=== PATIENT | male | born 1985 | race Caucasian/White ===

== ENCOUNTER 2018-01-20 10:08 | Inpatient (IN) ==
[2018-01-20] MEDS ORDERED: IOPAMIDOL 100 ML BOTTLE IV ONE (10:09)
--- NOTE | 2018-01-20 10:29 | Emergency Department Note ---
Skin/Abscess/FB HPI - General Chief complaint: Skin/Abscess/Foreign Body Stated complaint: right foot wound infection, previous surgery. Time Seen by Provider: 01/20/18 10:14 Source: patient Mode of arrival: wheelchair Limitations: no limitations - History of Present Illness HPI Narrative: 32-year-old male presents for evaluation of right ankle infection. In September he fell off a roof and broke his ankle. He had surgery and hardware put in. About 10 days ago he had surgery by Dr. Le and had the hardware removed. They believe it is infected. He has been taking oral antibiotics and it is continuing to get worse. He was sent here by Dr. Harrison. Positive chills last few days. Unknown fever. No nausea, vomiting, or diarrhea. He does have decreased energy. Associated symptoms: Reports: chills, malaise - Related Data Previous Rx's Medication Instructions Recorded DAPTOmycin [Cubicin] 700 mg IV Q24 #84 vial 01/08/18 Allergies Allergy/AdvReac Type Severity Reaction Status Date / Time No Known Drug Allergies Allergy Verified 12/31/17 10:10 Review of Systems All systems ED: reviewed and negative except as stated. Past Medical History - Past Medical History [facility] Narrative: Medical History (Last Updated 01/01/18 @ 12:43 by Jasmyne Sabillon) Integumentary disorder (Chronic) Endocrine disorder (Chronic) Fracture of right calcaneus (Chronic) MRSA cellulitis of right foot (Chronic) Cellulitis (Chronic) Nervousness (Chronic) Joint pain (Chronic) High blood pressure (Chronic) Past Surgical History (Last Reviewed 12/31/17 @ 10:21 by Luna Jalloh RN) History of foot fracture (Chronic 10/05/17) Medical history: Reports: hypertension - Social History smoking status: Current every day smoker Alcohol use: Reports: Occasionally Drug use: Reports: none Physical Exam Limitations: no limitations General appearance: alert, in no apparent distress Head: atraumatic, normocephalic, normal inspection Eye: Present: normal appearance. Absent: conjunctival injection ENT: mucous membranes moist Chest: Present: normal inspection, symmetric chest wall rise Respiratory: Present: normal lung sounds bilaterally. Absent: respiratory distress, wheezes Cardiovascular: Present: regular rate, normal heart sounds Extremities: Present: other (Right ankle with new dressing that was just placed by wound care. He does arrive with pictures in his chart that were taken today. He does have redness, swelling, warmth ankle. Please see picture documentation.) Neurological: Present: alert, oriented X3, normal gait Psychiatric: Present: normal affect, normal mood Skin: Present: warm, dry, normal color, erythema (Right ankle. Please see extremity documentation as well as pictures in chart) Course Course Narrative: At 1215 Dr. barker he is here to see the patient. He really feels the patient would benefit by admission with IV antibiotics. Pain management, hyperbaric therapy. The patient has been on outpatient IV therapy and has failed worsening symptoms rather than improvement. At 1315 I did speak with the hospitalist, Dr. Disla who would like us to contact Dr. Le since he recently did surgery as well as infectious disease for recommendations on antibiotic therapy. Vital Signs Temperature 97.6 F 01/20/18 10:09 Pulse Rate 86 01/20/18 10:09 Respiratory Rate 18 01/20/18 10:09 Blood Pressure 134/87 01/20/18 10:09 Pulse Oximetry (%) 100 01/20/18 10:09 Temperature 97.6 F 01/20/18 10:09 Pulse Rate 73 01/20/18 13:31 Respiratory Rate 20 01/20/18 12:15 Blood Pressure 111/69 01/20/18 13:00 Pulse Oximetry (%) 98 01/20/18 13:31 Skin/Abscess/Foreign Body - Lab Data Lab results reviewed: Yes I reviewed the patient's lab results. Result diagrams: 01/20/18 10:32 01/20/18 10:32 Lab Results 01/20/18 01/20/18 01/20/18 Range/Units 10:32 10:32 10:32 WBC 10.3 (4.5-11.0) K/mcL RBC 4.38 L (4.50-5.90) M/mcL Hgb 12.1 L (13.5-16.5) g/dL Hct 35.8 L (41.0-55.0) % POC Hct 36.0 L (41.0-55.0) % MCV 81.8 (80.0-100.0) fL MCH 27.6 (26.0-34.0) pg MCHC 33.8 (31.0-36.0) g/dL RDW 15.4 H (11.5-14.5) % Plt Count 313 (140-440) K/mcL MPV 8.0 (7.4-10.4) fL Gran % 50.6 (38.0-78.0) % Lymph % (Auto) 38.0 (15.5-49.0) % [place] % (Auto) 7.5 (1.0-12.0) % Eos % (Auto) 3.6 (0.0-7.0) % Baso % (Auto) 0.3 (0.0-2.0) % Gran # 5.2 (1.8-8.0) K/mcL Lymph # (Auto) 3.9 (1.5-4.8) K/mcL [place] # (Auto) 0.8 (0.1-0.9) K/mcL Eos # (Auto) 0.4 (0.0-0.7) K/mcL Baso # (Auto) 0 (0.0-0.3) K/mcL VBG Lactic Acid 0.7 (0.5-2.2) mmol/L POC Sodium 138 (133-145) mmol/L Sodium 138 (133-145) mmol/L POC Potassium 3.9 (3.3-5.1) mmol/L Potassium 4.0 (3.3-5.1) mmol/L POC Chloride 102 (96-108) mmol/L Chloride 103 (96-108) mmol/L Carbon Dioxide 26 (22-30) mmol/L POC Total CO2 25 (22-30) mmol/L Anion Gap 9.0 (8-16) POC BUN 9 (6-20) mg/dl BUN 10 (6-20) mg/dl Creatinine 0.7 (0.7-1.2) mg/dl POC Creatinine 0.6 L (0.7-1.2) mg/dl GFR Calculation 126 Glucose 94 (70-105) mg/dL POC Glucose 93 (70-105) mg/dL Calcium 9.7 (8.6-10.4) mg/dl POC WB Ioniz Calcium 1.20 (1.16-1.32) mmol/L Total Bilirubin 0.4 (0.0-1.0) mg/dL AST 31 (0-37) U/l ALT 67 H (0-40) U/l Alkaline Phosphatase 93 (39-117) U/L Total Protein 7.7 (5.9-8.4) gm/dL Albumin 3.8 (3.2-5.2) gm/dL Globulin 3.9 H (2.2-3.7) gm/dL Albumin/Globulin Ratio 1.0 (1.0-2.3) - Radiology Data Radiology results reviewed: Yes I reviewed the patient's radiology results. Disposition Pt seen by DISTRICT SERVICE MANAGER/PA only: Yes Clinical Impression: Post op infection, Cellulitis, Wound dehiscence, Pain, Anxiety Disposition: Xfer As Inpt ([facility]) Condition: Fair Referrals: Jose Wright MD [Physician] - Alexei Romero MD [Primary Care Provider] - Stanley Le MD [Physician] -
[2018-01-20] MEDS ORDERED: oxyCODONE/APAP 10/325MG TABLET PO ONE ×2 (10:53→11:08)
[2018-01-20 11:04] LABS: Basophils # (Auto) 0 K/mcL (0.0-0.3); Basophils % (Auto) 0.3 % (0.0-2.0); Eosinophils # (Auto) 0.4 K/mcL (0.0-0.7); Eosinophils % (Auto) 3.6 % (0.0-7.0); Granulocytes % (Auto) 50.6 % (38.0-78.0); Lymphocytes # (Auto) 3.9 K/mcL (1.5-4.8); Mean Cell Volume 81.8 fL (80.0-100.0); Mean Corpuscular HGB Conc 33.8 g/dL (31.0-36.0); Mean Corpuscular Hemoglobin 27.6 pg (26.0-34.0); Monocytes # (Auto) 0.8 K/mcL (0.1-0.9); Monocytes % (Auto) 7.5 % (1.0-12.0); Platelet Count 313 K/mcL (140-440); RBC 4.38 M/mcL (4.50-5.90); Red Cell Distribution Width 15.4 % (11.5-14.5)
[2018-01-20 11:24] LABS: ALT/SGPT 67 U/l (0-40); Albumin 3.8 gm/dL (3.2-5.2); Alkaline Phosphatase 93 U/L (39-117); Blood Urea Nitrogen 10 mg/dl (6-20)
--- NOTE | 2018-01-20 11:59 | Cat Scan Report ---
CLINICAL INFORMATION: History of distal fibular and calcaneal fracture. Previous open reduction and internal fixation TECHNIQUE: Axial images through the right ankle. Sagittally and coronally reformatted images. COMPARISON: Previous plain film examination of the right ankle dated 12/29/2017. Previous CT scan of the right foot dated 01/01/2018. FINDINGS: There is a dynamic compression plate on the distal right fibula. No evidence for osteomyelitis. No abnormality. Distal tibia is negative. Patient has a history of calcaneal fracture. Dynamic gadolinium fixation plate on the lateral aspects of the calcaneus has been removed. No acute fracture identified. There is a soft tissue wound in the lateral aspects of the right heel. This wound tracks deep to the calcaneus. There is no definite acute calcaneal bone destruction identified. No other interval change. Although acute bone destruction is not noted MRI scan may be helpful to exclude osteomyelitis. Appearance is consistent with osteopenia or osteoporosis, probably secondary to disuse. No soft tissue gas bubbles. IMPRESSION: 1. Status post removal of calcaneal fixation plate. 2. There is a soft tissue wound without gas bubbles. This wound tracks from the skin surface to the lateral aspects of the calcaneus 3. No definite acute bone destruction. Osteomyelitis is not excluded. MRI scan may be useful for further evaluation. Interpreted and Authenticated by: John Mendez 01/20/18
[2018-01-20] MEDS ORDERED: LORazepam 2 MG/ML VIAL IV ONE (12:06)
[2018-01-20] MEDS ORDERED: HYDROmorphone 2 MG/ML VIAL IV SCH (12:15)
[2018-01-20] MEDS ORDERED: HYDROmorphone 2 MG/ML VIAL IV ONE (12:27)
[2018-01-20] MEDS ORDERED: ALPRAZolam 0.5 MG TABLET PO ONE (14:01)
--- NOTE | 2018-01-20 15:25 | Internal Med History&Physical ---
<Evan Disla - Last Filed: 01/20/18 15:37> Medical - H&P: HPI Patient information: Note initiated : 01/20/18 at 3:37 pm Service Date, if different from initiated Date: [] Patient: Hipolito Arriaga 32 y/o M admitted on for right foot wound infection, previous surgery.. Chief Complaint: [] History of present illness: Mr. Arriaga is a 32 year old M Medical - H&P: Meds Home Medications Medication Instructions Recorded Confirmed Type DAPTOmycin [Cubicin] 700 mg IV Q24 #84 vial 01/08/18 01/20/18 Rx Claritin PRN 01/20/18 History Allergies Allergy/AdvReac Type Severity Reaction Status Date / Time No Known Drug Allergies Allergy Verified 01/20/18 14:29 Medical - H&P: Exam - Constitutional Vitals: Temp Pulse Resp BP Pulse Ox 97.6 F 71 20 89/54 98 01/20/18 10:09 01/20/18 15:02 01/20/18 12:15 01/20/18 15:02 01/20/18 15:02 Medical - H&P: Reslt - Labs CBC & Chem 7: 01/20/18 10:32 01/20/18 10:32 Labs: Short CBC 01/20/18 Range/Units 10:32 WBC 10.3 (4.5-11.0) K/mcL Hgb 12.1 L (13.5-16.5) g/dL Hct 35.8 L (41.0-55.0) % Plt Count 313 (140-440) K/mcL BMP 01/20/18 10:32 Sodium 138 Potassium 4.0 Chloride 103 Carbon Dioxide 26 BUN 10 Creatinine 0.7 Glucose 94 Calcium 9.7 Liver Function 01/20/18 Range/Units 10:32 Total Bilirubin 0.4 (0.0-1.0) mg/dL AST 31 (0-37) U/l ALT 67 H (0-40) U/l Alkaline Phosphatase 93 (39-117) U/L Albumin 3.8 (3.2-5.2) gm/dL <Zhen Galvez - Last Filed: 01/20/18 15:44> Medical - H&P: HPI Patient information: Note initiated : 01/20/18 at 3:24 pm Service Date, if different from initiated Date: [] Patient: Hipolito Arriaga 32 y/o M admitted on for right foot wound infection, previous surgery.. Chief Complaint: [] History of present illness: Mr. Arriaga is a 32 year old M LIVE [facility] Medical - H&P Patient Name: Hipolito Arriaga Date of : [birth year] Patient Status: Provider Office Visit Attending Provider: Jose Wright Date: 01/20/18 14:00 Initialization Date: 01/20/18 14:00 Medical - H&P: HPI Patient information: Note initiated : 01/20/18 at 2:00 pm Service Date, if different from initiated Date: [] Patient: Hipolito Arriaga 32 y/o M admitted on for 5 day f/u MDRO. Chief Complaint: [Pain and post op surgical infection] Chief complaint: Pain in right foot due to post op surgical infection History of present illness: Mr. Arriaga is a 32 year old M who presented to the ED at the direction of his wound care physician (Dr. Wright) due to apparent failure of outpatient wound treatment for a-post surgical wound and infection in his right foot. The Pt presented to the ED with an inflamed and erythematous wound in the right foot. His last pain rating in the ED was 5/10. Pt was given pain control in ED. The Pt initially injured his foot in September of 2017 when he fell off a roof. Surgery was performed in [place] and plates were placed to stabilize the foot. A few days later the foot became inflamed and the stitches fell out. The Pt was then managed as an outpatient for the next several months with improving and then relapsing infection of the surgical site. Pt then presented to wound care and was taken to surgery By Dr. Mendoza on 01/06/18 for removal of hardware and I& D. Pt was then started on outpatient wound therapy but failed due to continued infection and lack of healing. CT performed in the ED showed status post op changes without gas infiltrate but was unable to rule out osteomyelitis. Lab workup was unremarkable. Pt is a current smoker but wants to quit. Pt said he gets a headache and feels feverish when he receives daptomycin. Pt otherwise denies dizziness, chest pain , dyspnea, cough, fever, chills, nausea, vomiting, diarrhea or stomach pain. Pt will be admitted for wound care from Dr. Wright with consult from ID (Dr. Alfaro) for abx tx and consult from Surgeons Dr. Mendoza and Mimi. Vitals: 111/69 BP 79 HR 16 RR SpO2 97% on RA Review of systems: Positive as stated in HPI. Other 13 systems reviewed with Pt were negative. Medical - H&P: PMH Medical history: 1) Anxiety 2) Seasonal allergy symptoms 3) Genital rash treated with topical fungals Surgical history: Past Surgical History (Last Reviewed 12/31/17 @ 10:21 by Luna Jalloh RN) 1) Removal of hardware with I&D from repair done in September of 2017 2) History of foot fracture and repair with hardware implanted (Chronic 10/05/17 ) 3) Right ankle repair with hardware placed in 2015 Pertinent family history: Family History (Last Reviewed 12/31/17 @ 10:21 by Luna Jalloh RN) Father Prostate Cancer Mother Rheumatoid arthritis Social history: Social History (Last Updated 01/01/18 @ 12:44 by Jasmyne Sabillon) Pt lives with significant other Pt smokes .5 packs/day and wants to quit Denies EtOH and recreational drugs Medical - H&P: Meds Home Medications Medication Instructions Recorded Confirmed Type DAPTOmycin [Cubicin] 700 mg IV Q24 #84 vial 01/08/18 01/20/18 Rx Claritin PRN 01/20/18 History Allergies Allergy/AdvReac Type Severity Reaction Status Date / Time No Known Drug Allergies Allergy Verified 01/20/18 14:29 Medical - H&P: Exam - Constitutional Exam: Pt is resting and appears to be a healthy middle-aged man with normal habitus in no acute distress. - Head Head exam: Present: atraumatic, normocephalic - Eye Eye exam: Present: EOMI, normal appearance, PERRL Pupils: Present: PERRL - ENT ENT exam: Present: mucous membranes moist, normal exam - Respiratory Respiratory exam: Present: normal respiratory exam, CTAB - Cardiovascular Cardiovascular exam: Present: normal rate and rhythm - GI/Abdominal GI/Abdominal exam: Present: normal bowel sounds, soft - Extremities Exam Extremities exam: Present: full ROM, normal capillary refill Additional comments: Right foot was tender to palpation. Wound had just been wrapped by wound care. LE revealed onychomycosis in all 10 toes but was otherwise normal. - Neurological Exam Neurological exam: Present: alert, oriented X3 - Skin Skin exam: Present: dry Medical - H&P: A/P - Narrative A/P Narrative: Assessment 1) Post op surgical wound and infection with possible osteomyelitis 2) Anxiety 3) Tobacco use disorder 4) Right foot pain Plan 1) Continue IV antibiotics in consultation with ID (Dr. Alfaro) 1) Provide wound care in consultation with Mimi Gutiérrez & Kelly 1) MRI to rule out osteomyelitis 2) Treat anxiety as needed. 3) Charlo Pt on smoking cessation and provide nicotine replacement. 4) Provide pain relief 5) DVT prophylaxis Medical - H&P: Exam - Constitutional Vitals: Temp Pulse Resp BP Pulse Ox 97.6 F 71 20 89/54 98 01/20/18 10:09 01/20/18 15:02 01/20/18 12:15 01/20/18 15:02 01/20/18 15:02 Medical - H&P: Reslt - Labs CBC & Chem 7: 01/20/18 10:32 01/20/18 10:32 Labs: Short CBC 01/20/18 Range/Units 10:32 WBC 10.3 (4.5-11.0) K/mcL Hgb 12.1 L (13.5-16.5) g/dL Hct 35.8 L (41.0-55.0) % Plt Count 313 (140-440) K/mcL BMP 01/20/18 10:32 Sodium 138 Potassium 4.0 Chloride 103 Carbon Dioxide 26 BUN 10 Creatinine 0.7 Glucose 94 Calcium 9.7 Liver Function 01/20/18 Range/Units 10:32 Total Bilirubin 0.4 (0.0-1.0) mg/dL AST 31 (0-37) U/l ALT 67 H (0-40) U/l Alkaline Phosphatase 93 (39-117) U/L Albumin 3.8 (3.2-5.2) gm/dL
[2018-01-20] MEDS ORDERED: ACETAMINOPHEN 325 MG TABLET PO PRN (15:56)
[2018-01-20] MEDS ORDERED: ONDANSETRON 4 MG/2 ML VIAL IV PRN (15:56)
[2018-01-20] MEDS ORDERED: 0.9 % SODIUM CHLORIDE 10 ML SYRINGE IV PRN (16:49)
[2018-01-20] MEDS: 0.9 % SODIUM CHLORIDE 10 ML SYRINGE IV SCH ×2 (17:18→21:38)
[2018-01-20] MEDS: DAPTOmycin 500 MG VIAL IV SCH (17:18)
[2018-01-20] MEDS: HYDROcodone/APAP 5/325MG TABLET PO PRN ×3 (17:44→23:43)
--- NOTE | 2018-01-20 19:38 | Magnetic Resonance Report ---
CLINICAL INFORMATION: Previous calcaneal fracture. Soft tissue infection and removal of orthopedic hardware. There is a draining wound over the lateral aspects of the calcaneus. TECHNIQUE: Sagittal, axial, coronal images of the right foot. COMPARISON: Previous CT scan dated 01/20/2018. Prior examination dated 01/01/2018. FINDINGS: There is a calcaneal fracture. Patient underwent open reduction and internal fixation of calcaneal fracture with placement of a fixation plate. This hardware from the calcaneus has been removed. There is a wound which extends from the skin surface overlying the lateral aspects of the calcaneus deep to the calcaneal surface. No soft tissue gas bubbles demonstrated on CT scan. The calcaneus is diffusely abnormal with extensive bone marrow edema throughout much of the bone. Appearance is consistent with osteomyelitis. There is some sparing of the calcaneal tuberosity. The rest of the calcaneus appears abnormal. There is bone marrow edema within the posterior and inferior aspects of the talus. This is also suspicious for osteomyelitis. The talar dome is negative. The anterior talus to the talonavicular joint is negative. No definite fluid within the subtalar joint. Achilles tendon is intact. IMPRESSION: 1. Extensive abnormality of the calcaneus with relative sparing of the superficial aspects of the tuberosity. Findings are consistent with osteomyelitis 2. Bone marrow edema within the plantar and posterior aspects of the talus. Findings are suspicious for osteomyelitis. Interpreted and Authenticated by: John Mendez 01/20/18
--- NOTE | 2018-01-20 19:53 | General Surgery Consult Note ---
History of Present Illness Patient information: Note initiated : 01/20/18 at 7:44 pm Service Date, if different from initiated Date: [] Patient: Hipolito Arriaga 32 y/o M admitted on 01/20/18 for right foot wound infection, previous surgery.. Chief Complaint: [] Consult date: 01/20/18 (cellulitis osteomyelitis right calcaneus) Requesting physician: Evan Disla (wound care / management) History of present illness: 32 years male. Past history of falling off roof and sustaining fracture of right foot and heel area ( calcaneum ) Underwent open reduction and internal fixation in September 2017 at [facility]. Patient's wounds never healed. He has since moved to [facility]. He underwent exploration of the surgical site and removal of hardware by Dr. Le. He was seen at the wound care center earlier He missed f/u appointment and came to the clinic today with swelling, tenderness, redness, warmth and purulent drainage from the wound site. Cellulitis and osteomyelitis of this area is strongly considered. At this time, patient has necrotizing skin and subcutaneous soft tissue infection at the site of surgery and previous fracture. He needs aggressive inpatient management, IV antibiotics, hyperbaric oxygen therapy and possible reexploration. Patient was sent to the emergency room for further evaluation and management. I spoke with nurse practitioner, ER physician, hospitalist physician, Dr. Cowan radiologist and will also contact Dr. Stanley Le orthopedic surgeon who has operated on him recently. Medications and Allergies Home Medications Medication Instructions Recorded Confirmed Type DAPTOmycin [Cubicin] 700 mg IV Q24 #84 vial 01/08/18 01/20/18 Rx Loratadine [Claritin] 10 mg PO DAILYP PRN 01/20/18 01/20/18 History Allergies Allergy/AdvReac Type Severity Reaction Status Date / Time No Known Drug Allergies Allergy Verified 01/20/18 14:29 Exam Temp Pulse Resp BP Pulse Ox 97.4 F 81 20 103/63 97 01/20/18 16:00 01/20/18 16:00 01/20/18 12:15 01/20/18 16:00 01/20/18 16:00 - General physical appearance well developed, well nourished, no distress, moderate pain, other (Unable to walk or bear weight on the right foot. Using crutches for ambulation.) - Eyes PERRL, normal ocular movement - ENT normal pinna, normal nares, normal mucosa, no hearing loss, no congestion - Head Head exam IM: Present: atraumatic, normal inspection, normocephalic - Neck no masses, no bruits, trachea midline, no lymphadectomy, no venous distension - Cardiovascular Cardiovascular exam IM: Present: normal rate and rhythm - Respiratory normal expansion, normal respiratory effort, clear to percussion, clear to auscultation - Abdomen Abdomen: Present: soft, non tender, bowel sounds - Integumentary Present: other (erythema, warmth, edema, tenderness right heel lateral aspect with open surgical wound draining hematoma. Less material. No crepitation noted.) - Neurologic Present: normal coordination, normal sensation - Musculoskeletal Present: other (nonweightbearing right leg. Using crutches for ambulation.) - Psychiatric Present: oriented to time, oriented to person, oriented to place, speech is normal, memory intact Results - Labs 01/20/18 10:32 01/20/18 10:32 Abnormal lab results 01/20/18 01/20/18 Range/Units 10:32 10:32 RBC 4.38 L (4.50-5.90) M/mcL Hgb 12.1 L (13.5-16.5) g/dL Hct 35.8 L (41.0-55.0) % POC Hct 36.0 L (41.0-55.0) % RDW 15.4 H (11.5-14.5) % POC Creatinine 0.6 L (0.7-1.2) mg/dl ALT 67 H (0-40) U/l Globulin 3.9 H (2.2-3.7) gm/dL Diabetes panel 01/20/18 Range/Units 10:32 Sodium 138 (133-145) mmol/L Potassium 4.0 (3.3-5.1) mmol/L Chloride 103 (96-108) mmol/L Carbon Dioxide 26 (22-30) mmol/L BUN 10 (6-20) mg/dl Creatinine 0.7 (0.7-1.2) mg/dl Glucose 94 (70-105) mg/dL Calcium 9.7 (8.6-10.4) mg/dl AST 31 (0-37) U/l ALT 67 H (0-40) U/l Alkaline Phosphatase 93 (39-117) U/L Total Protein 7.7 (5.9-8.4) gm/dL Albumin 3.8 (3.2-5.2) gm/dL Calcium panel 01/20/18 Range/Units 10:32 Calcium 9.7 (8.6-10.4) mg/dl Albumin 3.8 (3.2-5.2) gm/dL Pituitary panel 01/20/18 Range/Units 10:32 Sodium 138 (133-145) mmol/L Potassium 4.0 (3.3-5.1) mmol/L Chloride 103 (96-108) mmol/L Carbon Dioxide 26 (22-30) mmol/L BUN 10 (6-20) mg/dl Creatinine 0.7 (0.7-1.2) mg/dl Glucose 94 (70-105) mg/dL Calcium 9.7 (8.6-10.4) mg/dl Adrenal panel 01/20/18 Range/Units 10:32 Sodium 138 (133-145) mmol/L Potassium 4.0 (3.3-5.1) mmol/L Chloride 103 (96-108) mmol/L Carbon Dioxide 26 (22-30) mmol/L BUN 10 (6-20) mg/dl Creatinine 0.7 (0.7-1.2) mg/dl Glucose 94 (70-105) mg/dL Calcium 9.7 (8.6-10.4) mg/dl Total Bilirubin 0.4 (0.0-1.0) mg/dL AST 31 (0-37) U/l ALT 67 H (0-40) U/l Alkaline Phosphatase 93 (39-117) U/L Total Protein 7.7 (5.9-8.4) gm/dL Albumin 3.8 (3.2-5.2) gm/dL All other labs normal. Assessment and Plan (1) Necrotizing fasciitis of ankle and foot Assessment: Necrotizing skin and soft tissue infection fasciitis right foot ankle and heel lateral aspect, Infected surgical wound with fracture of calcaneus and osteomyelitis Plan: Local wound care. IV antibiotics Hyperbaric oxygen therapy Consult orthopedics for possible reexploration and surgical debridement. Status: Acute Priority: High
[2018-01-20] MEDS: DOCUSATE SODIUM 100 MG CAPSULE PO SCH (21:32)
[2018-01-20] MEDS: NICOTINE 21 MG PATCH TOPICAL SCH (21:33)
[2018-01-20] MEDS: HEPARIN 5,000 UNIT/ML VIAL SQ SCH (21:34)
[2018-01-20] MEDS: MUPIROCIN OINT 2% 22GM TOPICAL SCH (21:39)
[2018-01-20] MEDS: LIDOCAINE VISCOUS 2% 1 ML SOLUTION PO PRN (23:00)
[2018-01-20] MEDS ORDERED: diphenhydrAMINE 25 MG CAPSULE PO PRN (23:35)
[2018-01-20] MEDS ORDERED: diphenhydrAMINE 25 MG CAPSULE ONE (23:55)
[2018-01-21] MEDS: 0.9 % SODIUM CHLORIDE 10 ML SYRINGE IV SCH ×3 (01:13→21:12)
[2018-01-21] MEDS: HYDROcodone/APAP 5/325MG TABLET PO PRN ×3 (07:41→17:07)
--- NOTE | 2018-01-21 07:54 | Internal Med Progress Note ---
Medical - PN: Subj Patient information: Note initiated : 01/21/18 at 7:49 am Service Date, if different from initiated Date: [] Patient: Hipolito Arriaga 32 y/o M admitted on 01/20/18 for right foot wound infection, previous surgery.. Chief Complaint: [] Interval history: Mr. Arriaga is a 32 year old M who presented to the ED at the direction of his wound care physician (Dr. Wright) due to apparent failure of outpatient wound treatment for a-post surgical wound and infection in his right foot. The Pt presented to the ED with an inflamed and erythematous wound in the right foot. His last pain rating in the ED was 5/10. Pt was given pain control in ED. The Pt initially injured his foot in September of 2017 when he fell off a roof. Surgery was performed in [place] and plates were placed to stabilize the foot. A few days later the foot became inflamed and the stitches fell out. The Pt was then managed as an outpatient for the next several months with improving and then relapsing infection of the surgical site. Pt then presented to wound care and was taken to surgery By Dr. Mendoza on 01/06/18 for removal of hardware and I& D. Pt was then started on outpatient wound therapy but failed due to continued infection and lack of healing. CT performed in the ED showed status post op changes without gas infiltrate but was unable to rule out osteomyelitis. Lab workup was unremarkable. 01/21 slept well. No overnight events. Review of Systems: denies headache/fever/chills/nausea/vomiting/chest or abdominal pain/cough/ dyspnea/diarrhea. Otherwise see above. - Constitutional Vitals: Vital Signs Temp Pulse Resp BP Pulse Ox 97.0 F 68 14 96/54 96 01/21/18 04:00 01/21/18 04:00 01/21/18 04:00 01/21/18 04:00 01/21/18 04:00 Period Temp Pulse Resp BP Sys/Wu Pulse Ox Last 24 Hr 97.0 F-98.4 F 68-86 14-20 89-134/50-87 96-100 Intake and Output 01/20/18 01/21/18 01/21/18 21:59 05:59 13:59 Intake Total 0 / 0 600 / 600 Output Total 250 / 250 Balance 0 / 0 350 / 350 Weight 92.76 kg Intake & Output: Intake & Output 01/20/18 01/21/18 01/21/18 21:59 05:59 13:59 Intake Total 0 / 0 600 / 600 Output Total 250 / 250 Balance 0 / 0 350 / 350 Weight 92.76 kg Intake: Oral 0 / 0 600 / 600 Output: Void Amount 250 / 250 Other: Urine Appearance Clear Urine Color Dark Yellow Urine Odor Normal Exam: General: Alert, Awake, No acute Distress HEENT: EOMI, CV: RRR, No murmurs, normal s1/s2 Pulm: Clear b/l, no wheezing/rhonchi/rales Abd: soft, nontender, +BS x4 Ext: no clubbing/cyanosis/edema with exception to right ankle which is swollen/ erythematous/tender/open wounds Neuro: Alert, no focal deficits, moves all extremities Skin: warm/dry Medical - PN: Obj Da - Labs CBC & Chem 7: 01/20/18 10:32 01/20/18 10:32 Labs: Abnormal Lab Results 01/20/18 01/20/18 10:32 10:32 RBC 4.38 L Hgb 12.1 L Hct 35.8 L POC Hct 36.0 L RDW 15.4 H POC Creatinine 0.6 L ALT 67 H Globulin 3.9 H Meds: Medications Acetaminophen (Tylenol) 650 mg PO Q6HP PRN PRN Reason: PAIN/FEVER > 101 Hydrocodone Bitart/Acetaminophen ([place] 5/325mg) 1 - 2 tab PO Q4HP PRN PRN Reason: PAIN LEVEL 3-6 Last Admin: 01/21/18 07:41 Dose: 1 tab Daptomycin (Cubicin) 700 mg IV Q24H [facility] Last Admin: 01/20/18 17:18 Dose: 700 mg Diphenhydramine HCl (Benadryl) 25 mg PO HSP PRN PRN Reason: Insomnia Docusate Sodium (Colace) 100 mg PO BID [facility] Last Admin: 01/20/18 21:32 Dose: 100 mg Heparin Sodium (Porcine) (Heparin) 5,000 unit SQ Q12 [facility] Last Admin: 01/20/18 21:34 Dose: 5,000 unit Heparin Sodium (Porcine) (Heparin Flush) 2 ml IV Q12 [facility] Last Admin: 01/20/18 21:38 Dose: 2 ml Lidocaine HCl (Lidocaine Viscous 2%) 10 ml PO Q6HP PRN PRN Reason: Mouth Sore Pain Last Admin: 01/20/18 23:00 Dose: 10 ml Morphine Sulfate (Morphine) 1 - 3 mg IV Q3HP PRN PRN Reason: PAIN LEVEL > 6 Mupirocin (Bactroban Oint 2%) 1 dose TOPICAL BID [facility] Last Admin: 01/20/18 21:39 Dose: 1 dose Nicotine (Nicoderm) 21 mg TOPICAL DAILY@1000 [facility] Last Admin: 01/20/18 21:33 Dose: 21 mg Ondansetron HCl (Zofran) 4 mg IV Q6HP PRN PRN Reason: Nausea And Vomiting Sodium Chloride (Saline Flush) 10 ml IV UD PRN PRN Reason: FLUSH Sodium Chloride (Saline Flush) 10 ml IV Q12 [facility] Last Admin: 01/20/18 21:38 Dose: 10 ml Medical - PN: A/P - Time Spent With Patient Total time spent is greater than 50% in coordination of care (as documented) at patient's floor/unit and/or counseling patient: - Narrative A/P Narrative: Assessment * complicated course Post-op with multiple infections to the right ankle with osteomyelitis now present * Anxiety * Tobacco use disorder * Right foot pain Plan - Continue IV antibiotics in consultation with ID (Dr. Alfaro) -pending wc/bc - Provide wound care in consultation with Dr. Wright - Ortho following Flock/Mendoza - Treat anxiety as needed. - [place] Pt on smoking cessation and provide nicotine replacement. - Provide pain relief - DVT prophylaxis: heparin Medical - PN: Qual - VTE Deep Vein Thrombosis/Pulmonary Embolism Present on Admission: No
--- NOTE | 2018-01-21 08:21 | General Surgery Progress Note ---
Subjective Narrative: Note initiated : 01/21/18 at 8:19 am Service Date, if different from initiated Date: [] Patient: Hipolito Arriaga 32 y/o M admitted on 01/20/18 for right foot wound infection, previous surgery.. Chief Complaint: [] I saw this patient along with Robina DALEY and spoke with Dr. Disla, hospitalist physician. Reviewed MRI of his right foot and radiology report. Osteomyelitis is present at the site of fracture right calcaneus. Patient had an uneventful night and slept well. Objective Temp Pulse Resp BP Pulse Ox 97.0 F 68 14 96/54 96 01/21/18 04:00 01/21/18 04:00 01/21/18 04:00 01/21/18 04:00 01/21/18 04:00 Afebrile. Vital signs are stable. No acute interval changes in general physical examination. Local examination: Decreased edema and swelling. Erythema is responding to local wound care and MIST treatment. Tenderness is less. No drainage noted. - Additional Data Intake & Output - Last 24 hours: Intake & Output 01/19/18 01/20/18 01/21/18 01/22/18 05:59 05:59 05:59 05:59 Intake Total 600 / 600 Output Total 250 / 250 Balance 350 / 350 Weight 204 lb 8 oz - Labs 01/20/18 10:32 01/20/18 10:32 Diabetes panel 01/20/18 Range/Units 10:32 Sodium 138 (133-145) mmol/L Potassium 4.0 (3.3-5.1) mmol/L Chloride 103 (96-108) mmol/L Carbon Dioxide 26 (22-30) mmol/L BUN 10 (6-20) mg/dl Creatinine 0.7 (0.7-1.2) mg/dl Glucose 94 (70-105) mg/dL Calcium 9.7 (8.6-10.4) mg/dl AST 31 (0-37) U/l ALT 67 H (0-40) U/l Alkaline Phosphatase 93 (39-117) U/L Total Protein 7.7 (5.9-8.4) gm/dL Albumin 3.8 (3.2-5.2) gm/dL Calcium panel 01/20/18 Range/Units 10:32 Calcium 9.7 (8.6-10.4) mg/dl Albumin 3.8 (3.2-5.2) gm/dL Pituitary panel 01/20/18 Range/Units 10:32 Sodium 138 (133-145) mmol/L Potassium 4.0 (3.3-5.1) mmol/L Chloride 103 (96-108) mmol/L Carbon Dioxide 26 (22-30) mmol/L BUN 10 (6-20) mg/dl Creatinine 0.7 (0.7-1.2) mg/dl Glucose 94 (70-105) mg/dL Calcium 9.7 (8.6-10.4) mg/dl Adrenal panel 01/20/18 Range/Units 10:32 Sodium 138 (133-145) mmol/L Potassium 4.0 (3.3-5.1) mmol/L Chloride 103 (96-108) mmol/L Carbon Dioxide 26 (22-30) mmol/L BUN 10 (6-20) mg/dl Creatinine 0.7 (0.7-1.2) mg/dl Glucose 94 (70-105) mg/dL Calcium 9.7 (8.6-10.4) mg/dl Total Bilirubin 0.4 (0.0-1.0) mg/dL AST 31 (0-37) U/l ALT 67 H (0-40) U/l Alkaline Phosphatase 93 (39-117) U/L Total Protein 7.7 (5.9-8.4) gm/dL Albumin 3.8 (3.2-5.2) gm/dL Assessment and Plan (1) Necrotizing fasciitis of ankle and foot Status: Acute Current Visit: Yes - Time Spent With Patient Total time spent is greater than 50% in coordination of care (as documented) at patient's floor/unit and/or counseling patient: Assessment: Satisfactory progress. Responding to treatment. Plan: Continue local wound care and IV antibiotics. Start hyperbaric oxygen therapy. Physical therapy consult for recommendations about offloading and ambulation with crutches vs walker FWW or scooter Anxiolytic medication prior to HBOT 15 - 24 minutes
[2018-01-21] MEDS: DAPTOmycin 500 MG VIAL IV SCH (09:51)
[2018-01-21] MEDS: DOCUSATE SODIUM 100 MG CAPSULE PO SCH ×2 (09:51→21:10)
[2018-01-21] MEDS: MUPIROCIN OINT 2% 22GM TOPICAL SCH ×2 (09:51→21:11)
[2018-01-21] MEDS: HEPARIN 5,000 UNIT/ML VIAL SQ SCH ×2 (09:52→21:10)
[2018-01-21] MEDS: NICOTINE 21 MG PATCH TOPICAL SCH (09:53)
--- NOTE | 2018-01-21 10:44 | Infectious Disease Consult ---
History of Present Illness Patient information: Note initiated : 01/21/18 at 10:43 am Service Date, if different from initiated Date: [] Patient: Hipolito Arriaga 32 y/o M admitted on 01/20/18 for right foot wound infection, previous surgery.. Chief Complaint: [] Consult date: 01/21/18 Requesting Physician: Evan Disla Reason for Consult: Rt ankle swelling and redness, on IV Daptomycin for rt calcaneal OM Chief complaint: My ankle was more swollen and red on Friday History of present illness: 32-year-old man, well-known to me from his last hospitalization and previous to that being seen in ID clinic. He is currently on IV daptomycin for treatment of MRSA right ankle hardware infection, status post hardware removal and concerns for calcaneal osteomyelitis. He was getting his daily IV daptomycin injections in [facility] through right arm PICC line. Per the infusion center he missed his dose last Friday. Patient was seen in the wound care clinic on 01/20/2018 and subsequently asked to go to the ER because of redness, swelling around the right ankle wound and concerns for necrotizing infection. Patient was afebrile with normal vital signs. CT of the foot showed no gas and wound tracks from skin surface to the little aspects of calcaneus. MRI confirmed the presence of calcaneal osteomyelitis. Patient has been doing fine in the hospital with normal white cell count and vital signs. He was continued on IV daptomycin, and was also seen by wound care for hyperbaric oxygen therapy. At time of visit today, he denied any symptoms including muscle aches, dark-colored urine, fever, chills, nausea, vomiting, diarrhea, pain at the PICC line site. I discussed with him the CT and MRI results, and plan to continue for at least 6-8 weeks of IV antibiotics followed by oral suppression. Review of Systems All systems PM: reviewed and no additional remarkable complaints except as stated Past History Past medical history: IV drug use, opioid abuse in past Past family history: Patient used to live with his mother in [place], no other significant family history pertinent to current presentation Past social history: Smokes 1 pack per day Medications and Allergies Home Medications Medication Instructions Recorded Confirmed Type DAPTOmycin [Cubicin] 700 mg IV Q24 #84 vial 01/08/18 01/20/18 Rx Loratadine [Claritin] 10 mg PO DAILYP PRN 01/20/18 01/20/18 History Allergies Allergy/AdvReac Type Severity Reaction Status Date / Time No Known Drug Allergies Allergy Verified 01/20/18 14:29 Physical Examination Vital signs: Temp Pulse Resp BP Pulse Ox 36.1 C 68 14 96/54 96 01/21/18 04:00 01/21/18 04:00 01/21/18 04:00 01/21/18 04:00 01/21/18 04:00 General appearance: no acute distress Eyes pulmonary: nonicteric Auscultation: bilateral: clear Cardiovascular: regular rate and rhythm Gastrointestinal: normoactive bowel sounds, non-tender Right ankle: Looks slightly swollen compared to left side. No redness, no discharge, nontender. There is a small ulcer 1 and 2.5 cm size with callus and granulation tissue around it. Good peripheral pulses, no neuropathy Results - Laboratory Findings CBC and BMP: 01/20/18 10:32 01/20/18 10:32 Abnormal lab findings: Abnormal Labs 01/20/18 01/20/18 10:32 10:32 RBC 4.38 L Hgb 12.1 L Hct 35.8 L POC Hct 36.0 L RDW 15.4 H POC Creatinine 0.6 L ALT 67 H Globulin 3.9 H Microbiology: Microbiology 01/20/18 14:38 Ankle - Right Gram Stain - Final 01/20/18 14:38 Ankle - Right Wound Culture - Preliminary Assessment and Plan - Narrative A/P Narrative: Assessment: 1. 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 Patient on IV daptomycin since December,. Planned stop date of February, -Check a CK level while patient is here -Will need weekly BMP, CK levels And ESR and CRP every other week patient already has a follow-up appointment scheduled in ID clinic for february at 2:45 PM Bernabe Alfaro MD Infectious disease
[2018-01-21] MEDS: LORazepam 1 MG TABLET PO PRN (12:03)
[2018-01-21] MEDS: LIDOCAINE VISCOUS 2% 1 ML SOLUTION PO PRN (19:21)
[2018-01-21] MEDS ORDERED: KETOROLAC 30 MG/ML VIAL IV ONE (20:23)
[2018-01-21] MEDS: LORazepam 0.5 MG TABLET PO PRN (20:39)
[2018-01-22] MEDS: HYDROcodone/APAP 5/325MG TABLET PO PRN ×5 (00:16→19:32)
--- NOTE | 2018-01-22 07:30 | Internal Med Progress Note ---
Medical - PN: Subj Patient information: Note initiated : 01/22/18 at 7:27 am Service Date, if different from initiated Date: [] Patient: Hipolito Arriaga 32 y/o M admitted on 01/20/18 for Right Foot Wound Infection, from Previous Surgery. Chief Complaint: [] Interval history: Mr. Arriaga is a 32 year old M who presented to the ED at the direction of his wound care physician (Dr. Wright) due to apparent failure of outpatient wound treatment for a-post surgical wound and infection in his right foot. The Pt presented to the ED with an inflamed and erythematous wound in the right foot. His last pain rating in the ED was 5/10. Pt was given pain control in ED. The Pt initially injured his foot in September of 2017 when he fell off a roof. Surgery was performed in [place] and plates were placed to stabilize the foot. A few days later the foot became inflamed and the stitches fell out. The Pt was then managed as an outpatient for the next several months with improving and then relapsing infection of the surgical site. Pt then presented to wound care and was taken to surgery By Dr. Mendoza on 01/06/18 for removal of hardware and I& D. Pt was then started on outpatient wound therapy but failed due to continued infection and lack of healing. CT performed in the ED showed status post op changes without gas infiltrate but was unable to rule out osteomyelitis. Lab workup was unremarkable. 01/21 slept well. No overnight events. 01/22 Slept okay last night. Has toothache as prior to admit. Review of Systems: denies headache/fever/chills/nausea/vomiting/chest or abdominal pain/cough/ dyspnea/diarrhea. Otherwise see above. - Constitutional Vitals: Vital Signs Temp Pulse Resp BP Pulse Ox 97.1 F 67 12 96/50 98 01/22/18 04:00 01/22/18 04:00 01/22/18 04:00 01/22/18 04:00 01/22/18 04:00 Period Temp Pulse Resp BP Sys/Wu Pulse Ox Last 24 Hr 97.0 F-98.4 F 63-75 12-14 96-110/44-69 96-98 Intake and Output 01/21/18 01/22/18 01/22/18 21:59 05:59 13:59 Intake Total 880 / 880 800 / 800 Output Total 500 / 500 450 / 450 Balance 380 / 380 350 / 350 Weight 93.213 kg Intake & Output: Intake & Output 01/21/18 01/22/18 01/22/18 21:59 05:59 13:59 Intake Total 880 / 880 800 / 800 Output Total 500 / 500 450 / 450 Balance 380 / 380 350 / 350 Weight 93.213 kg Intake: Oral 880 / 880 800 / 800 Output: Void Amount 500 / 500 450 / 450 Other: Meal Nourishment/Supplement Percent of Meal Consumed 100% Exam: General: Alert, Awake, No acute Distress HEENT: EOMI, CV: RRR, No murmurs, normal s1/s2 Pulm: Clear b/l, no wheezing/rhonchi/rales Abd: soft, nontender, +BS x4 Ext: no clubbing/cyanosis/edema with exception to right ankle which currently has dressing placed and intact Neuro: Alert, no focal deficits, moves all extremities Skin: warm/dry Medical - PN: Obj Da - Labs CBC & Chem 7: 01/20/18 10:32 01/20/18 10:32 Labs: Abnormal Lab Results 01/20/18 01/20/18 10:32 10:32 RBC 4.38 L Hgb 12.1 L Hct 35.8 L POC Hct 36.0 L RDW 15.4 H POC Creatinine 0.6 L ALT 67 H Globulin 3.9 H Meds: Medications Acetaminophen (Tylenol) 650 mg PO Q6HP PRN PRN Reason: PAIN/FEVER > 101 Hydrocodone Bitart/Acetaminophen ([place] 5/325mg) 1 - 2 tab PO Q4HP PRN PRN Reason: PAIN LEVEL 3-6 Last Admin: 01/22/18 05:20 Dose: 2 tab Daptomycin (Cubicin) 700 mg IV Q24H [facility] Last Admin: 01/21/18 09:51 Dose: 700 mg Diphenhydramine HCl (Benadryl) 25 mg PO HSP PRN PRN Reason: Insomnia Docusate Sodium (Colace) 100 mg PO BID [facility] Last Admin: 01/21/18 21:10 Dose: 100 mg Heparin Sodium (Porcine) (Heparin) 5,000 unit SQ Q12 [facility] Last Admin: 01/21/18 21:10 Dose: 5,000 unit Heparin Sodium (Porcine) (Heparin Flush) 2 ml IV Q12 [facility] Last Admin: 01/21/18 21:10 Dose: 2 ml Ketorolac Tromethamine (Toradol) 15 mg IV Q6HP PRN PRN Reason: Pain Stop: 01/23/18 20:24 Lidocaine HCl (Lidocaine Viscous 2%) 10 ml PO Q6HP PRN PRN Reason: Mouth Sore Pain Last Admin: 01/21/18 19:21 Dose: 10 ml Lorazepam (Ativan) 1 mg PO DAILYP PRN PRN Reason: ANXIETY/SEDATION Last Admin: 01/21/18 12:03 Dose: 1 mg Lorazepam (Ativan) 0.5 mg PO Q8HP PRN PRN Reason: ANXIETY/SEDATION Last Admin: 01/21/18 20:39 Dose: 0.5 mg Morphine Sulfate (Morphine) 0 mg IV Q3HP PRN PRN Reason: PAIN LEVEL > 6 Last Admin: 01/21/18 20:39 Dose: 2 mg Mupirocin (Bactroban Oint 2%) 1 dose TOPICAL BID [facility] Last Admin: 01/21/18 21:11 Dose: 1 dose Nicotine (Nicoderm) 21 mg TOPICAL DAILY@1000 [facility] Last Admin: 01/21/18 09:53 Dose: 21 mg Ondansetron HCl (Zofran) 4 mg IV Q6HP PRN PRN Reason: Nausea And Vomiting Sodium Chloride (Saline Flush) 10 ml IV UD PRN PRN Reason: FLUSH Sodium Chloride (Saline Flush) 10 ml IV Q12 [facility] Last Admin: 01/21/18 21:12 Dose: 10 ml Medical - PN: A/P - Time Spent With Patient Total time spent is greater than 50% in coordination of care (as documented) at patient's floor/unit and/or counseling patient: - Narrative A/P Narrative: Assessment * complicated course Post-op with multiple infections to the right ankle with osteomyelitis now present -BC/WC neg * Anxiety * Tobacco use disorder * Right foot pain Plan - Continue Daptomycin 700mg through 02/19/2018 per ID (Dr. Alfaro), weekly bmp/ ck, esr/crp every other week, f/u outpt - Provide wound care in consultation with Dr. Wright, HBOT - Ortho following Flock/Mendoza - Treat anxiety as needed. - [place] Pt on smoking cessation and provide nicotine replacement. - Provide pain relief -f/u with dentist outpt - DVT prophylaxis: heparin Medical - PN: Qual - VTE Deep Vein Thrombosis/Pulmonary Embolism Present on Admission: No
[2018-01-22] MEDS: DOCUSATE SODIUM 100 MG CAPSULE PO SCH ×2 (08:59→21:00)
[2018-01-22] MEDS: HEPARIN 5,000 UNIT/ML VIAL SQ SCH ×2 (08:59→21:00)
--- NOTE | 2018-01-22 09:18 | Infectious Disease Prog Note ---
Subjective Patient information: Note initiated : 01/22/18 at 8:43 am Service Date, if different from initiated Date: [] Patient: Hipolito Arriaga 32 y/o M admitted on 01/20/18 for Right Foot Wound Infection, from Previous Surgery. Chief Complaint: [] Interval history: Patient is doing fine. Denies any fever, chills, nausea, vomiting, diarrhea, muscle aches. Has some pain in the right ankle wound but is overall better. Endorses pain in the root of 1 of the teeth in the right lower jaw which was partially removed in the past. Has an appointment with dentist to remove the underlying root Objective - Vital Signs Vital signs: Vital Signs Temp Pulse Resp BP Pulse Ox 01/22/18 07:57 36.3 C 65 12 94/57 97 01/22/18 04:00 36.2 C 67 12 96/50 98 01/22/18 00:00 36.2 C 63 12 100/44 97 01/21/18 21:40 36.9 C 72 14 110/54 98 01/21/18 16:00 36.2 C 74 14 105/56 96 01/21/18 12:00 36.4 C 73 14 97/64 96 Intake and Output 01/21/18 01/22/18 01/22/18 21:59 05:59 13:59 Intake Total 880 / 880 800 / 800 Output Total 500 / 500 450 / 450 Balance 380 / 380 350 / 350 Intake: Oral 880 / 880 800 / 800 Output: Void Amount 500 / 500 450 / 450 Other: Meal Nourishment/Supplement Percent of Meal Consumed 100% Weight 93.213 kg Intake & Output: Intake & Output 01/21/18 01/22/18 01/22/18 21:59 05:59 13:59 Intake Total 880 / 880 800 / 800 Output Total 500 / 500 450 / 450 Balance 380 / 380 350 / 350 Weight 93.213 kg Intake: Oral 880 / 880 800 / 800 Output: Void Amount 500 / 500 450 / 450 Other: Meal Nourishment/Supplement Percent of Meal Consumed 100% - General Appearance General appearance: well-developed, well-nourished EENT: mucous membranes moist (The tenderness is noticed at the root of 1 of premolars removed in the past. No pus expressed on pressure. The root is discolored with yellowish discoloration) Respiratory: clear Cardiology: no murmurs, normal S1, normal S2 Gastrointestinal: normoactive bowel sounds Integumentary: no rash Psychiatric: mood/affect appropriate - Lab 01/20/18 10:32 01/20/18 10:32 Most recent lab results Calcium 9.7 mg/dl (8.6-10.4) 01/20/18 10:32 Microbiology 01/20/18 11:55 Blood Blood Culture - Preliminary 01/20/18 11:32 Blood Blood Culture - Preliminary 01/20/18 14:38 Ankle - Right Gram Stain - Final 01/20/18 14:38 Ankle - Right Wound Culture - Preliminary Medications Active Medications: Acetaminophen (Tylenol) 650 mg PO Q6HP PRN PRN Reason: PAIN/FEVER > 101 Hydrocodone Bitart/Acetaminophen ([place] 5/325mg) 1 - 2 tab PO Q4HP PRN PRN Reason: PAIN LEVEL 3-6 Last Admin: 01/22/18 05:20 Dose: 2 tab Admin: 01/22/18 00:16 Dose: 2 tab Admin: 01/21/18 17:07 Dose: 2 tab Admin: 01/21/18 12:52 Dose: 2 tab Admin: 01/21/18 07:41 Dose: 2 tab Comments: wanted two instead of one Admin: 01/20/18 23:43 Dose: 1 tab Daptomycin (Cubicin) 700 mg IV Q24H [facility] Last Admin: 01/21/18 09:51 Dose: 700 mg Comments: computer shut off during documentation Admin: 01/20/18 17:18 Dose: 700 mg Diphenhydramine HCl (Benadryl) 25 mg PO HSP PRN PRN Reason: Insomnia Docusate Sodium (Colace) 100 mg PO BID [facility] Last Admin: 01/21/18 21:10 Dose: 100 mg Admin: 01/21/18 09:51 Dose: 100 mg Comments: computer shut off during documentation Admin: 01/20/18 21:32 Dose: 100 mg Heparin Sodium (Porcine) (Heparin) 5,000 unit SQ Q12 [facility] Last Admin: 01/21/18 21:10 Dose: 5,000 unit Admin: 01/21/18 09:52 Dose: 5,000 unit Comments: computer shut off during documentation Admin: 01/20/18 21:34 Dose: 5,000 unit Heparin Sodium (Porcine) (Heparin Flush) 2 ml IV Q12 [facility] Last Admin: 01/21/18 21:10 Dose: 2 ml Admin: 01/21/18 09:52 Dose: 2 ml Comments: computer shut off during documentation Admin: 01/20/18 21:38 Dose: 2 ml Ketorolac Tromethamine (Toradol) 15 mg IV Q6HP PRN PRN Reason: Pain Stop: 01/23/18 20:24 Lidocaine HCl (Lidocaine Viscous 2%) 10 ml PO Q6HP PRN PRN Reason: Mouth Sore Pain Last Admin: 01/21/18 19:21 Dose: 10 ml Admin: 01/20/18 23:00 Dose: 10 ml Lorazepam (Ativan) 1 mg PO DAILYP PRN PRN Reason: ANXIETY/SEDATION Last Admin: 01/21/18 12:03 Dose: 1 mg Lorazepam (Ativan) 0.5 mg PO Q8HP PRN PRN Reason: ANXIETY/SEDATION Last Admin: 01/21/18 20:39 Dose: 0.5 mg Morphine Sulfate (Morphine) 0 mg IV Q3HP PRN PRN Reason: PAIN LEVEL > 6 Last Admin: 01/21/18 20:39 Dose: 2 mg Mupirocin (Bactroban Oint 2%) 1 dose TOPICAL BID [facility] Last Admin: 01/21/18 21:11 Dose: 1 dose Admin: 01/21/18 09:51 Dose: 1 dose Comments: computer shut of during documentation Admin: 01/20/18 21:39 Dose: 1 dose Nicotine (Nicoderm) 21 mg TOPICAL DAILY@1000 [facility] Last Admin: 01/21/18 09:53 Dose: 21 mg Comments: computer shut off during documentation. Admin: 01/20/18 21:33 Dose: 21 mg Ondansetron HCl (Zofran) 4 mg IV Q6HP PRN PRN Reason: Nausea And Vomiting Sodium Chloride (Saline Flush) 10 ml IV UD PRN PRN Reason: FLUSH Sodium Chloride (Saline Flush) 10 ml IV Q12 [facility] Last Admin: 01/21/18 21:12 Dose: 10 ml Admin: 01/21/18 09:52 Dose: 10 ml Comments: computer shut off during documentation Admin: 01/20/18 21:38 Dose: 10 ml Assessment and Plan - Narrative A/P Narrative: Assessment: 1. 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 Probable infection of the root of 1 of the premolars in the right lower jaw Recommendations: -Consider Panorex to rule out any dental abscess. Patient has a follow-up appointment with a dentist tomorrow Continue IV daptomycin at 8 mg/kg [700 mg]. Patient on IV daptomycin since December,. Planned stop date of February, Follow-up labs: weekly BMP, CK levels ESR and CRP every other week patient already has a follow-up appointment scheduled in ID clinic for february at 2:45 PM Bernabe Alfaro MD Infectious disease
[2018-01-22] MEDS: MUPIROCIN OINT 2% 22GM TOPICAL SCH ×2 (11:03→20:49)
[2018-01-22] MEDS: DAPTOmycin 500 MG VIAL IV SCH (11:03)
[2018-01-22] MEDS: 0.9 % SODIUM CHLORIDE 10 ML SYRINGE IV SCH ×2 (11:04→21:01)
[2018-01-22] MEDS: NICOTINE 21 MG PATCH TOPICAL SCH ×2 (11:04→21:00)
--- NOTE | 2018-01-22 11:53 | Discharge Summary ---
Medical - DS: Prov Patient information: Note initiated : 01/22/18 at 11:53 am Service Date, if different from initiated Date: [] Patient: Hipolito Arriaga 32 y/o M admitted on 01/20/18 for Right Foot Wound Infection, from Previous Surgery. Chief Complaint: [] Date of admission: 01/20/18 15:34 Discharge date: 01/23/18 Primary care physician: Alexei Romero Consults: 01/20/18 Consult to Physician [CONS] Stat Comment: Consulting Provider: Evan Disla Reason For Exam: Physician to Consult 01/20/18 13:16 Consult to Physician [CONS] Stat Comment: Consulting Provider: Stanley Le Reason For Exam: Physician to Consult 01/20/18 13:17 Consult to Physician [CONS] Stat Comment: Consulting Provider: Bernabe Alfaro Reason For Exam: Physician to Consult 01/20/18 13:54 Consult to Physician [CONS] Routine Comment: Consulting Provider: Jose Wright Reason For Exam: Physician to Consult Medical - DS: Meds - Discharge Medications Prescriptions: Acetaminophen [Tylenol] 650 mg PO Q6HP PRN #60 tab PRN Reason: Pain/Fever > 101 DAPTOmycin [Cubicin] 700 mg IV Q24H #1 vial Active and Home Medications: Home Medications DAPTOmycin [Cubicin] 700 mg IV Q24 #84 vial 01/08/18 [Rx Confirmed 01/20/18 Last Taken Unknown] Loratadine [Claritin] 10 mg PO DAILYP PRN 01/20/18 [History Confirmed 01/20/18 Last Taken Unknown] Medical - DS: Hosp Hospital course: Mr. Arriaga is a 32 year old M who presented to the ED at the direction of his wound care physician (Dr. Wright) due to apparent failure of outpatient wound treatment for a-post surgical wound and infection in his right foot. The Pt presented to the ED with an inflamed and erythematous wound in the right foot. His last pain rating in the ED was 5/10. Pt was given pain control in ED. The Pt initially injured his foot in September of 2017 when he fell off a roof. Surgery was performed in [place] and plates were placed to stabilize the foot. A few days later the foot became inflamed and the stitches fell out. The Pt was then managed as an outpatient for the next several months with improving and then relapsing infection of the surgical site. Pt then presented to wound care and was taken to surgery By Dr. Mendoza on 01/06/18 for removal of hardware and I& D. Pt was then started on outpatient wound therapy but failed due to continued infection and lack of healing. CT performed in the ED showed status post op changes without gas infiltrate but was unable to rule out osteomyelitis. Lab workup was unremarkable. 01/21 slept well. No overnight events. Receiving HBOT 01/22 Slept okay last night. Has toothache as prior to admit. 01/23 No new complaints, getting hyperbaric oxygen therapy today. Stable for discharge. Discharge diagnosis: Right ankle osteomyelitis and ankle cellulitis - Time Spent with Patient Total time spent providing and/or coordinating discharge services: Greater than 30 minutes Medical - DS: Exam - Constitutional Vitals: Vital Signs Temp Pulse Resp BP Pulse Ox 01/22/18 07:57 97.4 F 65 12 94/57 97 01/22/18 04:00 97.1 F 67 12 96/50 98 01/22/18 00:00 97.1 F 63 12 100/44 97 01/21/18 21:40 98.4 F 72 14 110/54 98 01/21/18 16:00 97.1 F 74 14 105/56 96 01/21/18 12:00 97.5 F 73 14 97/64 96 Intake and Output 01/21/18 01/22/18 01/22/18 21:59 05:59 13:59 Intake Total 880 / 880 800 / 800 Output Total 500 / 500 450 / 450 Balance 380 / 380 350 / 350 Intake: Oral 880 / 880 800 / 800 Output: Void Amount 500 / 500 450 / 450 Other: Meal Nourishment/Supplement Percent of Meal Consumed 100% Weight 93.213 kg Medical - DS: Data Labs on day of discharge: Labs from last 24 hours 01/22/18 05:06 Total Creatine Kinase 62 Preliminary micro results at discharge 01/20/18 11:55 Blood Culture - Preliminary Blood 01/20/18 11:32 Blood Culture - Preliminary Blood Medical - DS: A/P - Patient/Caregiver Discharge Instructions Activity: as per physical therapy Diet: Regular Diet Additional Instructions: Weekly CBC/BMP/CK and every other week ESR/CRP while on IV antibiotics. PICC line care. DC PICC line upon completion of antibiotics. - Follow up Plan Follow up with: Jose Wright MD [Physician] - Stanley Le MD [Physician] - Alexei Romero MD [Primary Care Provider] - Bernabe Alfaro MD [Physician] - Disposition: Home, Self-Care Prognosis: Fair Rehab Potential: Fair Medical - DS: Qual - VTE Deep Vein Thrombosis/Pulmonary Embolism Present on Admission: No
[2018-01-22] MEDS: CHLORHEXIDINE GLUCONATE 1 ML ORAL.SOL SSP SCH ×2 (12:22→21:00)
[2018-01-22] MEDS: LORazepam 0.5 MG TABLET PO PRN ×2 (12:58→21:00)
[2018-01-22] MEDS: KETOROLAC 15 MG/ML VIAL IV PRN (17:24)
--- NOTE | 2018-01-22 18:24 | General Surgery Progress Note ---
Subjective Narrative: Note initiated : 01/22/18 at 6:21 pm Service Date, if different from initiated Date: [] Patient: Hipolito Arriaga 32 y/o M admitted on 01/20/18 for Right Foot Wound Infection, from Previous Surgery. Chief Complaint: [] I saw Hipolito golden along with the Robina RN and nursing staff on rounds this morning and again during his HBOT at the wound clinic later. Today he is complaining about toothache and plans are underway for him to be evaluated by dentist DARREL. Pain and swelling of his right heel and ankle region has decreased since he was started on intravenous antibiotics, local wound care and hyperbaric oxygen therapy for necrotizing fasciitis and soft tissue infection, he also has osteomyelitis of calcaneum. Objective Temp Pulse Resp BP Pulse Ox 97.7 F 72 16 102/62 97 01/22/18 16:00 01/22/18 16:00 01/22/18 16:00 01/22/18 16:00 01/22/18 16:00 AVSS. Local examination decreasing erythema right heel posterior lateral aspect. Surgical site wound bed has a demarcating eschar and slough. I proceeded to dbride this at the bedside under local anesthesia with LMX cream - Additional Data Intake & Output - Last 24 hours: Intake & Output 01/20/18 01/21/18 01/22/18 01/23/18 05:59 05:59 05:59 05:59 Intake Total 600 / 600 1680 / 1680 360 / 360 Output Total 250 / 250 1900 / 1900 600 / 600 Balance 350 / 350 -220 / -220 -240 / -240 Weight 204 lb 8 oz 205 lb 8 oz - Labs 01/20/18 10:32 01/20/18 10:32 Assessment and Plan (1) Necrotizing fasciitis of ankle and foot Status: Acute Current Visit: Yes - Narrative A/P Narrative: Assessment: Satisfactory progress with the combined hyperbaric oxygen therapy , intravenous antibiotics and local wound care using MIST treatment and Topical antibiotic cream and offloading. Toothache and dental problems. Awaiting evaluation by dentist. Plan: Debridement of right heel wound at bedside Continue hyperbaric oxygen therapy, IV antibiotics and MIST treatment. - Time Spent With Patient Total time spent is greater than 50% in coordination of care (as documented) at patient's floor/unit and/or counseling patient: 15 - 24 minutes
--- NOTE | 2018-01-22 18:29 | Brief Operative Note ---
Date of procedure: 01/22/18 Pre-op diagnosis: resolving necrotizing fasciitis right lateral heel. Post-op diagnosis: same Procedure: Selective debridement of the wound at bedside under LMX topical anesthesia Grafts/Implants: No Anesthesia: local Complications: none Surgeon: Jose Wright Estimated blood loss (cc): 0 Specimens Removed/Pathology: none sent Condition: stable Disposition: floor (Procedure well tolerated.)
[2018-01-23] MEDS: KETOROLAC 15 MG/ML VIAL IV PRN (04:15)
[2018-01-23] MEDS: HYDROcodone/APAP 5/325MG TABLET PO PRN ×3 (04:15→13:27)
--- NOTE | 2018-01-23 07:24 | Operative Note ---
DATE OF OPERATION: 01/22/2018 PREOPERATIVE DIAGNOSES: 1. Open wound at the previous surgical site right lateral posterior heel. 2. Resolving necrotizing fasciitis. 3. Osteomyelitis calcaneum. POSTOPERATIVE DIAGNOSES: 1. Open wound at the previous surgical site right lateral posterior heel. 2. Resolving necrotizing fasciitis. 3. Osteomyelitis calcaneum. OPERATION: Selective debridement of wound. ANESTHESIA: Local laryngeal LMX. PROCEDURE NOTE: After discussing the plan of care and obtaining verbal consent, I proceeded to clean this wound and debrided this at the bedside. The area was cleaned with chlorhexidine solution. Under sterile precautions this wound was selectively debrided with #5 curet. Upon completion bright red capillary oozing was noted from the wound bed. Xeroform gauze, absorbent dressings applied and procedure terminated. Blood loss was nil. All counts of swabs, instruments and needles were correct. VD:stefanie Job ID: [id number] Doc ID: [id number] Jose Wright MD
[2018-01-23] MEDS: DOCUSATE SODIUM 100 MG CAPSULE PO SCH (08:25)
[2018-01-23] MEDS: HEPARIN 5,000 UNIT/ML VIAL SQ SCH (08:26)
[2018-01-23] MEDS: CHLORHEXIDINE GLUCONATE 1 ML ORAL.SOL SSP SCH (08:27)
[2018-01-23] MEDS: LORazepam 1 MG TABLET PO PRN ×2 (09:15→09:18)
[2018-01-23] MEDS: DAPTOmycin 500 MG VIAL IV SCH (09:15)
[2018-01-23] MEDS: MUPIROCIN OINT 2% 22GM TOPICAL SCH (09:16)
[2018-01-23] MEDS: 0.9 % SODIUM CHLORIDE 10 ML SYRINGE IV SCH (09:16)
[2018-01-23] MEDS: NICOTINE 21 MG PATCH TOPICAL SCH (13:25)
== END 2018-01-23 13:35 | disposition home or self-care (01) | DRG 500 ==
LOC: ED 10:08 → MEDSUR 15:32
PROVIDERS: ADMIT Internal Medicine; ATTEND Internal Medicine